=== PATIENT | female | born 1980 | race Two or more races ===

== ENCOUNTER 2024-08-27 07:42 | Inpatient (IN) | payer MEDICAID ==
[~2024-08-27] VITALS: Ht 152.4 cm; Wt 59.7 kg
[~2024-08-27 07:42] MED LIST: ATOR10TA52 PO; CHOL20003 PO; FENO145T27 PO; LEVO75TA6 PO; LISI10TA34 PO; METF-371 PO
--- NOTE | 2024-08-27 07:58 | ED.PDOC ---
GI ASSESSMENT HPI Comments 44-year-old female with PMHx DM presents with a chief complaint of nausea and vomiting x 2 days with associated abdominal discomfort. Patient states that her discomfort is diffuse in location, describes as a general aching sensation. Patient mentions that she has not checked her sugar lately, but usually is in the 160's according to patient. Patient is tachycardic, but has moist mucus membranes. Patient endorses nausea and vomiting, but no bleeding or blood present in the emesis. No other symptoms or modifying factors present at this time. Time Seen by MD: 07:55 Reviewed Notes: Medications, Allergies Allergies: Coded Allergies: NO KNOWN ALLERGIES (Unverified , 08/27/24) Information Source: Patient Mode of Arrival: Ambulatory Timing: Days Duration: Since onset Prehospital treatment: None Quality: Aching Vomitus: Food Particles Stool: Normal Severity: Moderate Recent: None Recent Hx of: Diabetes Pain Location: Diffuse Past Medical History PAST MEDICAL HISTORY: DM Surgical History: Denies all surgeries AUTOMATIC TYPEWRITER INSPECTOR History: Denies all AUTOMATIC TYPEWRITER INSPECTOR Hx Family History Family History: Reviewed,noncontributory to illness Social History Smoker: Non-Smoker Alcohol: Denies ETOH Use Drugs: Denies Drug Use Lives In: Home Constitutional: denies: chills, diaphoresis, fatigue, fever, malaise, sweats, weakness, others EENTM: denies: blurred vision, double vision, ear bleeding, ear discharge, ear drainage, ear pain, ear ringing, eye pain, eye redness, hearing loss, mouth pain, mouth swelling, nasal discharge, nose bleeding, nose congestion, nose pain, photophobia, tearing, throat pain, throat swelling, voice changes, others Respiratory: denies: cough, hemoptysis, orthopnea, SOB at rest, shortness of breath, SOB with excertion, stridor, wheezing, others Cardiovascular: denies: chest pain, dizzy spells, diaphoresis, Dyspnea on exertion, edema, irregular heart beat, left arm pain, lightheadedness, palpitations, PND, syncope, others Gastrointestinal: reports: abdominal pain, nausea, vomiting; denies: abdomen distended, blood streaked bowels, constipated, diarrhea, dysphagia, difficulty swallowing, hematemesis, melena, poor appetite, poor fluid intake, rectal bl eeding, rectal pain, others Genitourinary: denies: abnormal vagina bleeding, burning, dyspareunia, dysuria, flank pain, frequency, hematuria, incontinence, pain, , vagina discharge, urgency, others Neurological: denies: dizziness, fainting, headache, left sided numbness, left sided weakness, numbness, paresthesia, pre-existing deficit, right sided numbness, right sided weakness, seizure, speech problems, tingling, tremors, weakness, others Musculoskeletal: denies: back pain, gout, joint pain, joint swelling, muscle pain, muscle stiffness, neck pain, others Integumetry: denies: bruises, change in color, change in hair/nails, dryness, laceration, lesions, lumps, rash, wounds, others Allergic/Immunocompromised: denies: Difficulty Healing, Frequent Infections, Hives, Itching, others Hematologic/Lymphatic: denies: anemia, blood clots, easy bleeding, easy bruising, swollen glands, others Endocrine: denies: excessive hunger, excessive sweating, excessive thirst, excessive urination, flushing, intolerance to cold, intolerance to heat, unexplained weight gain, unexplained weight loss, others Psychiatric: denies: anxiety, bipolar disorder, depression, hopeless, panic disorder, schizophrenia, sleepless, suicidal, others All Other Systems: Reviewed and Negative Physical Exam General Appearance: No Apparent Distress, Normal HEENT: Normal ENT Inspection, Pharynx Normal, TMs Normal Neck: Full Range of Motion, Non-Tender, Normal, Normal Inspection Respiratory: Chest Non-Tender, Lungs Clear, No Accessory Muscle Use, No Respiratory Distress, Normal Breath Sounds Cardiovascular: No Edema, No JVD, No Murmur, No Gallop, Normal Peripheral Pulses, Tachycardia Breast Exam: Deferred Gastrointestinal: No Organomegaly, Non Tender, No Pulsatile Mass, Normal Bowel Sounds, Soft Genitalia: Deferred Pelvic: Deferred Rectal: Deferred Extremities: No calf tenderness, Normal capillary refill, Normal inspection, Normal range of motion, Non-tender, No pedal edema Musculoskeletal : Apperance: Normal Neurologic: Alert, seo strategist II-XII nml as Tested, No Motor Deficits, Normal Affect, Normal Mood, No Sensory Deficits Cerebellar Function: Normal Reflexes: Normal Skin: Dry, Normal Color, Warm Lymphatic: No Adenopathy Was a procedure done? Was a procedure done?: No GI differential Dx Differential Diagnosis: Appendicitis, Complete , Incomplete , Inevitable , Missed , Threatened , Abruptio placentae, Angina/SC, Bowel Obstruction, Cholangitis, Cholecystitis, Constipation, Diverticular disease, Ectopic , Esophagitis, Gastritis/PUD, Gastroenteritis, Hernia, Hepatitis, Inflammatory BD, Ovarian cyst/torsion, Pancreatitis, PID, UTI, Urolithiasis, Dehydration, Diabetes/ DKA, Electrolyte Imbalance, Food Poisoning, , Bacterial, Viral, Hypovolemia, Impaction, Renal Failure, Ischemic Bowel, Stress Ulcer, Kidney Stone, Other (sepsis) X-Ray, Labs, Meds, VS Vital Signs Date Time Temp Pulse Resp B/P (MAP) Pulse Ox O2 Delivery O2 Flow Rate FiO2 08/27/24 10:20 120 30 98 Room Air* 0 08/27/24 10:13 97.6 120 30 134/77 (96) 98 97.6 08/27/24 08:17 116 17 95 Room Air* 0 08/27/24 08:17 98.0 116 17 125/74 (91) 95 98.0 08/27/24 08:00 97.5 138 22 125/83 (97) 98 Lab Test 08/27/24 10:21 08/27/24 09:16 08/27/24 08:05 08/27/24 08:01 Range/Units POC Glucose 318 H 364 H 70-106 mg/dl Blood Gas Specimen Type Arterial Blood Gas Sample Site Left radial Blood Gas Patient Temperature 37.0 Arterial Blood Date Drawn [id number] Arterial Blood pH 7.395 7.350-7.450 Arterial Blood Partial Pressure CO2 < 12.6 *L 32.0-45.0 mmHg Arterial Blood Partial Pressure O2 103.8 83.0-108.0 mmHg Arterial Blood Oxygen Saturation 97.6 94.0-98.0 % Arterial Blood Oxyhemoglobin 96.8 94.0-98.0 % Arterial Blood Carboxyhemoglobin 0.5 0.5-1.5 % Arterial Blood Methemoglobin 0.3 0.0-1.5 % Dirk Test Yes Blood Gas Total Hemoglobin 14.00 12.0-16.0 g/dL Blood Gas Modality Room air FiO2 % 21.0 Blood Gas Critical Value Read Back Yes Blood Gas Notified Whom Blood Gas Notified Time [id number] Blood Gas Notified By Music Artist [email or web address] White Blood Count 11.8 H 4.4-10.8 10^3/uL Red Blood Count 5.06 4.0-5.20 10^6/uL Hemoglobin 14.0 12.2-16.2 g/dL Hematocrit 42.3 36.0-46.0 % Mean Corpuscular Volume 83.6 80.0-100.0 fL Mean Corpuscular Hemoglobin 27.6 L 28.0-32.0 pg Mean Corpuscular Hemoglobin Concent 33.0 32.0-36.0 g/dL Red Cell Distribution Width 13.4 11.8-14.3 % Platelet Count 424 140-450 10^3/uL Mean Platelet Volume 9.1 6.9-10.8 fL Neutrophils (%) (Auto) 78.0 37.0-80.0 % Lymphocytes (%) (Auto) 15.4 10.0-50.0 % Monocytes (%) (Auto) 6.5 0.0-12.0 % Eosinophils (%) (Auto) 0.0 0.0-7.0 % Basophils (%) (Auto) 0.1 0.0-2.0 % Neutrophils # (Auto) 9.2 H 1.6-8.6 10 ^3/uL Lymphocytes # (Auto) 1.8 0.4-5.4 10 ^3/uL Monocytes # (Auto) 0.8 0-1.3 10 ^3/uL Eosinophils # (Auto) 0 0-0.8 10 ^3/uL Basophils # (Auto) 0 0-0.2 10 ^3/uL Nucleated Red Blood Cells 0.1 % Sodium Level 127 L 136-145 mmol/L Potassium Level 3.1 L 3.5-5.1 mmol/L Chloride Level 91 L 98-107 mmol/L Carbon Dioxide Level < 10 *L 20-31 mmol/L Anion Gap 26.04172 H 5-15 Blood Urea Nitrogen 21 9-23 mg/dL Creatinine 1.08 H 0.550-1.02 mg/dL Glomerular Filtration Rate Calc 65 >90 mL/min BUN/Creatinine Ratio 19.4 10.0-20.0 Serum Glucose 363 H 74-106 mg/dL Calcium Level 11.5 H 8.7-10.4 mg/dL Lipase 78 H 12-53 U/L Beta HCG, Quantitative 0.1 L 1.5-4.2 mIU/mL Test 08/27/24 08:00 08/27/24 07:52 Range/Units POC Glucose 377 H 70-106 mg/dl Urine Color Light-yellow Yellow Urine Clarity Turbid H Clear Urine pH 5.0 5.0-9.0 Urine Specific [place] 1.026 1.001-1.035 Urine Protein 1+ H Negative Urine Ketones 4+ H Negative Urine Blood 2+ H Negative /uL Urine Nitrite Negative Negative Urine Bilirubin Negative Negative Urine Urobilinogen 2 H Negative mg/dL Urine Leukocyte Esterase 3+ Negative /uL Urine RBC 13 0 - 4 /hpf Urine WBC 57 0 - 5 /hpf Urine Squamous Epithelial Cells Few <5 /hpf Urine Bacteria None seen None Seen /hpf Urine Hyaline Casts Few 0 - 2 /lpf Urine Glucose 4+ H Normal mg/dL Current Medications Medications (Trade) Dose Ordered Sig/Edie Route Start Time Stop Time Status Last Admin Sodium Chloride 1,000 ml @ 1,000 mls/hr Q1H ONCE IV 08/27/24 08:00 08/27/24 08:59 DC 08/27/24 08:11 Ondansetron HCl (Zofran) 4 mg ONCE ONCE IV 08/27/24 08:00 08/27/24 08:01 DC 08/27/24 08:11 Insulin Human Regular (InsuLIN R) 6 units ONCE ONCE IV 08/27/24 08:45 08/27/24 08:46 DC 08/27/24 10:25 Potassium Chloride 100 ml @ 50 mls/hr Q2H IV 08/27/24 09:15 08/27/24 15:14 08/27/24 10:18 Time of 1ST Reevaluation: 08:26 Reevaluation 1ST: Unchanged Patient Education/Counseling: Diagnosis, Treatment, Prognosis Family Education/Counseling: Diagnosis, Treatment, Prognosis Comments I reviewed the following notes from patient's past medical encounters: NONE The following tests were ordered, and results were reviewed by me: CBC, BMP, Lipase, Beta HCG, UA Additional Information pt has evidence of an UTI. this likely triggered the DKA. she does not have shock. she has a mixed acid base disorder. pt is on in insulin drip, receiving iv boluses and improving. she will need to be admitted for further treatments Sepsis Sepsis Reasesment Focused Exam Sepsis focused exam: focus exam completed, time: (1100) Departure 1 Departure Time of Disposition: 11:01 Impression: Primary Impression: DKA (diabetic ketoacidosis) Qualified Codes: E10.10 - Type 1 diabetes mellitus with ketoacidosis without coma Additional Impressions: Sepsis Qualified Codes: A41.9 - Sepsis, unspecified organism Mixed acid base balance disorder UTI (urinary tract infection) Qualified Codes: N30.00 - Acute cystitis without hematuria Disposition: 09 ADMITTED INPATIENT Admit to: ICU Condition: Serious Critical Care Note Critical Care Time?: Yes (90 min-critical care time only) Critical care comment: Due to concerns for patients condition deteriorating, the care required my highest level of attention and readiness to intervene. I assessed the patient, reviewed the medical records, ordered the appropriate tests and treatments, then reassessed for results and responsiveness. I communicated with medical personnel and consultants and formulated a plan of care. Total critical care time excludes any procedures Stability Stability form required: No I personally scribed for AMBER CACERES MD ([email or web address]) on 08/27/24 at 07:58. Electronically submitted by Javier Wild ([email or web address]). I personally scribed for AMBER CACERES MD ([email or web address]) on 08/27/24 at 08:00. Electronically submitted by Javier Wild ([email or web address]). AMBER CACERES MD Aug 27, 2024 07:58
[2024-08-27] MEDS: SODIUM CHLORIDE 0.9% 1,000 ML IV ONE (08:11)
[2024-08-27] MEDS: ONDANSETRON HCL 4 MG/2 ML VIAL IV ONE (08:11)
[2024-08-27] MEDS ORDERED: InsuLIN REG 1unit/0.01ml Soln (100units/ml) IV ONE (08:15)
[2024-08-27 08:17] VITALS: PULSE 116; RESP 17; O2SAT 95
[2024-08-27 08:25] LABS: Basophils # (auto) 0 10 ^3/uL (0-0.2); Basophils % (auto) 0.1 % (0.0-2.0); Eosinophils # (auto) 0 10 ^3/uL (0-0.8); Hematocrit 42.3 % (36.0-46.0); Lymphocytes # (auto) 1.8 10 ^3/uL (0.4-5.4); Lymphocytes % (auto) 15.4 % (10.0-50.0); Mean Corpuscular Hemoglobin 27.6 pg (28.0-32.0); Mean Corpuscular Volume 83.6 fL (80.0-100.0); Monocytes # (auto) 0.8 10 ^3/uL (0-1.3); Monocytes % (auto) 6.5 % (0.0-12.0); Neutrophils # (auto) 9.2 10 ^3/uL (1.6-8.6); Nucleated Red Blood Cells % 0.1 %; Platelet Count (auto) 424 10^3/uL (140-450); Red Blood Cells 5.06 10^6/uL (4.0-5.20); Red Cell Distribution Width 13.4 % (11.8-14.3); White Blood Cell 11.8 10^3/uL (4.4-10.8)
[2024-08-27 08:31] LABS: Anion Gap 26.00001 (5-15)
[2024-08-27 08:37] LABS: BUN/Creatinine Ratio 19.4 (10.0-20.0); Blood Urea Nitrogen 21 mg/dL (9-23)
[2024-08-27 08:53] LABS: Calcium 11.5 mg/dL (8.7-10.4); Chloride 91 mmol/L (98-107); Glucose 363 mg/dL (74-106); Potassium 3.1 mmol/L (3.5-5.1); Sodium 127 mmol/L (136-145)
[2024-08-27 08:55] LABS: Carbon Dioxide < 10 mmol/L (20-31)
[2024-08-27 09:18] LABS: Urine Bacteria None Seen /hpf (None Seen)
[2024-08-27 09:35] LABS: Urine Blood 2+ /uL (Negative); Urine Clarity Turbid (Clear); Urine Color Light-Yellow (Yellow); Urine Hyaline Cast FEW /lpf (0 - 2); Urine Protein, UAD 1+ (Negative); Urine Specific Gravity 1.026 (1.001-1.035); Urine Squamous Epithelial Cell FEW /hpf (<5); Urine Urobilinogen 2 mg/dL (Negative); Urine WBC 57 /hpf (0 - 5)
[2024-08-27] MEDS: POTASSIUM CHL 20MEQ/100ML 100 ML IV SCH (10:18)
[2024-08-27 10:20] VITALS: PULSE 120; RESP 30; O2SAT 98
[2024-08-27] MEDS: InsuLIN REG 1unit/0.01ml Soln (100units/ml) IV ONE (10:25)
[2024-08-27 10:38] LABS: Lipase 78 U/L (12-53)
[2024-08-27] MEDS ORDERED: DEXTROSE (50%) 50ML SYRG IV PRN ×2 (11:00→23:15)
[2024-08-27] MEDS: PIPERACILLIN-TAZOB 3.375GM 100 ML IV ONE (11:21)
[2024-08-27] MEDS: SODIUM CHLORIDE 0.9% 1,650 ML IV ONE (11:21)
[2024-08-27 11:27] LABS: Magnesium 2.2 mg/dL (1.6-2.6)
[2024-08-27 11:28] LABS: Phosphorus 2.9 mg/dL (2.4-5.1)
[2024-08-27] MEDS: ACCU-CHEK COMFORT CURVE STRIP VI SCH ×2 (11:32→23:48)
[2024-08-27] MEDS: INSULIN DRIP 100 UNIT/100ML 100 ML IV SCH (11:32)
[2024-08-27] MEDS: INSULIN LANTUS (GLARGINE) 1 /0.01ml (100units/ml) SC ONE (11:33)
--- NOTE | 2024-08-27 11:40 | DVH ---
XY CHEST PORTABLE, HISTORY: sepsis COMPARISON: None None TECHNICAL DATA: 1 view of the chest was obtained. FINDINGS: Lines and tubes: None Cardiomediastinal silhouette: normal Pulmonary vasculature: normal Lung expansion: normal Lung airspace: normal Lung interstitium: normal Pleura: normal Pneumothorax: no Bones: Unremarkable Other: no IMPRESSION: No acute intrathoracic abnormality.
[2024-08-27] MEDS: METOCLOPRAMIDE HCL 5MG/ml INJ 2ml VIAL IV ONE ×2 (13:15→17:51)
[2024-08-27] MEDS: D5W/SOD CHLO 0.9% 1,000 ML IV SCH (13:36)
[2024-08-27] MEDS ORDERED: PIPERACILLIN-TAZO 4.5GM 100 ML IV SCH (14:00)
--- NOTE | 2024-08-27 14:36 | DVHHP2 ---
History of Present Illness Reason for Visit: Nausea and vomiting History of Present Illness This 44-year-old female with past medical history of diabetes type 2, presents in the ED with a chief complaint of nausea and vomiting. The patient reports nausea and vomiting x2 days, and associated with abdominal discomfort. In the e mergency department the patient is found to be in DKA for which she was started on DKA insulin protocol. Patient also presented in the emergency department with a UTI and leukocytosis. Past Medical History Diabetes type 2 Hypertension Past Surgical History Denies Family History Reviewed, non-contributory to the management of this case. Past Social History The patient lives at home, denies smoking, alcohol or illicit drugs abuse. Review of Systems Constitutional: Yes: Malaise; No: Fever, Chills, Sweats, Weakness, Other Eyes: No: Pain, Vision change, Conjunctivae inflammation, Eyelid inflammation, Other, Redness ENT: No: Ear pain, Ear discharge, Nose pain, Nose discharge, Nose congestion, Mouth pain, Mouth swelling, Throat pain, Throat swelling, Other Respiratory: No: Cough, Dry, Shortness of breath, SOB with excertion, Wheezing, Hemoptysis, Pleuritic Pain, Sputum, Wheezing, Other Cardiovascular: No: Chest Pain, Palpitations, Orthopnea, Paroxysmal Noc. Dyspnea, Edema, Lt Headedness, Other Gastrointestinal: Nausea, Vomiting, Abdominal Pain; No: Diarrhea, Constipation, Melena, Hematochezia, Other Genitourinary: No Dysuria, No Frequency, No Incontinence, No Hematuria, No Retention, No Other Musculoskeletal: No: other, neck pain, shoulder pain, arm pain, back pain, hand pain, leg pain, foot pain Skin: No: Rash, Lesions, Jaundice, Bruising, Other Neurological: No: Weakness, Numbness, Incoordination, Change in speech, Confusion, Seizures, Other Allergies: Coded Allergies: NO KNOWN ALLERGIES (Unverified , 08/27/24) Medications Current Medications Medications Dose Ordered Sig/Edie Route Start Time Stop Time Status Last Admin Dose Admin Potassium Chloride 100 ml @ 50 mls/hr Q2H IV 08/27/24 09:15 08/27/24 15:14 08/27/24 13:59 50 MLS/HR Insulin Human (Reg)/Sodium Chloride 100 ml @ 0.5 mls/hr Q24H IV 08/27/24 11:00 08/27/24 11:32 3 MLS/HR Dextrose 50 ml UD PRN IV 08/27/24 11:00 Diagnostic Test (Pha) 1 strip Q90MIN 08/27/24 12:00 08/27/24 13:21 1 STRIP Insulin Glargine 15 units DAILY SC 08/28/24 10:00 Piperacillin Sod/ Tazobactam Sod 100 ml @ 25 mls/hr Q8H IV 08/27/24 20:00 Dextrose/Sodium Chloride 1,000 ml @ 100 mls/hr Q10H IV 08/27/24 13:30 08/27/24 13:36 100 MLS/HR Exam Vital Signs Vital Signs Date Time Temp Pulse Resp B/P (MAP) Pulse Ox O2 Delivery O2 Flow Rate FiO2 08/27/24 12:11 105 08/27/24 12:00 24 132/79 (96) 99 08/27/24 10:20 Room Air* 0 21 08/27/24 10:13 97.6 97.6 General Appearance: Alert, Oriented X3, mild distress HEENT: Atraumatic, PERRLA, EOMI, Mucous membr. moist/pink Respiratory: Clear to auscultation, Normal air movement Cardiovascular: Regular rate, Normal S1 Abdominal: Normal bowel sounds, Soft, No tenderness Extremities: No clubbing, No cyanosis, No edema, Normal pulses Skin: No rashes, No breakdown, No significant lesion Neuro: Normal gait, Normal speech, Strength at 5/5 X4 ext, Normal tone Psych/Mental Status: Mental status NL Labs/Xrays Labs Test 08/27/24 13:21 08/27/24 13:16 08/27/24 11:17 08/27/24 09:16 Range/Units POC Glucose 202 H 70-106 mg/dl Troponin I High Sensitivity 3 L </=34 ng/L Lactic Acid Level 1.6 0.4-2.0 mmol/L Blood Gas Specimen Type Arterial Blood Gas Sample Site Left radial Blood Gas Patient Temperature 37.0 Arterial Blood Date Drawn [id number] Arterial Blood pH 7.395 7.350-7.450 Arterial Blood Partial Pressure CO2 < 12.6 *L 32.0-45.0 mmHg Arterial Blood Partial Pressure O2 103.8 83.0-108.0 mmHg Arterial Blood Oxygen Saturation 97.6 94.0-98.0 % Arterial Blood Oxyhemoglobin 96.8 94.0-98.0 % Arterial Blood Carboxyhemoglobin 0.5 0.5-1.5 % Arterial Blood Methemoglobin 0.3 0.0-1.5 % Dirk Test Yes Blood Gas Total Hemoglobin 14.00 12.0-16.0 g/dL Blood Gas Modality Room air FiO2 % 21.0 Blood Gas Critical Value Read Back Yes Blood Gas Notified Whom Blood Gas Notified Time [id number] Blood Gas Notified By [place] Operator iván Test 08/27/24 08:05 08/27/24 07:52 Range/Units White Blood Count 11.8 H 4.4-10.8 10^3/uL Red Blood Count 5.06 4.0-5.20 10^6/uL Hemoglobin 14.0 12.2-16.2 g/dL Hematocrit 42.3 36.0-46.0 % Mean Corpuscular Volume 83.6 80.0-100.0 fL Mean Corpuscular Hemoglobin 27.6 L 28.0-32.0 pg Mean Corpuscular Hemoglobin Concent 33.0 32.0-36.0 g/dL Red Cell Distribution Width 13.4 11.8-14.3 % Platelet Count 424 140-450 10^3/uL Mean Platelet Volume 9.1 6.9-10.8 fL Neutrophils (%) (Auto) 78.0 37.0-80.0 % Lymphocytes (%) (Auto) 15.4 10.0-50.0 % Monocytes (%) (Auto) 6.5 0.0-12.0 % Eosinophils (%) (Auto) 0.0 0.0-7.0 % Basophils (%) (Auto) 0.1 0.0-2.0 % Neutrophils # (Auto) 9.2 H 1.6-8.6 10 ^3/uL Lymphocytes # (Auto) 1.8 0.4-5.4 10 ^3/uL Monocytes # (Auto) 0.8 0-1.3 10 ^3/uL Eosinophils # (Auto) 0 0-0.8 10 ^3/uL Basophils # (Auto) 0 0-0.2 10 ^3/uL Nucleated Red Blood Cells 0.1 % Sodium Level 127 L 136-145 mmol/L Potassium Level 3.1 L 3.5-5.1 mmol/L Chloride Level 91 L 98-107 mmol/L Carbon Dioxide Level < 10 *L 20-31 mmol/L Anion Gap 26.47734 H 5-15 Blood Urea Nitrogen 21 9-23 mg/dL Creatinine 1.08 H 0.550-1.02 mg/dL Glomerular Filtration Rate Calc 65 >90 mL/min BUN/Creatinine Ratio 19.4 10.0-20.0 Serum Glucose 363 H 74-106 mg/dL Serum Osmolality 301 H 278-298 mOsm/kg Calcium Level 11.5 H 8.7-10.4 mg/dL Phosphorus Level 2.9 2.4-5.1 mg/dL Magnesium Level 2.2 1.6-2.6 mg/dL Lipase 78 H 12-53 U/L Beta-Hydroxybutyric Acid > 4.500 H < 0.4 mmol/L Beta HCG, Quantitative 0.1 L 1.5-4.2 mIU/mL Urine Color Light-yellow Yellow Urine Clarity Turbid H Clear Urine pH 5.0 5.0-9.0 Urine Specific [place] 1.026 1.001-1.035 Urine Protein 1+ H Negative Urine Ketones 4+ H Negative Urine Blood 2+ H Negative /uL Urine Nitrite Negative Negative Urine Bilirubin Negative Negative Urine Urobilinogen 2 H Negative mg/dL Urine Leukocyte Esterase 3+ Negative /uL Urine RBC 13 0 - 4 /hpf Urine WBC 57 0 - 5 /hpf Urine Squamous Epithelial Cells Few <5 /hpf Urine Bacteria None seen None Seen /hpf Urine Hyaline Casts Few 0 - 2 /lpf Urine Glucose 4+ H Normal mg/dL PROCEDURE(s): CXRP - CHEST PORTABLE REASON: sepsis ORDER NUMBER(s): [id number], ACCESSION NUMBER(s): [id number] XY CHEST PORTABLE, HISTORY: sepsis COMPARISON: None None TECHNICAL DATA: 1 view of the chest was obtained. FINDINGS: Lines and tubes: None Cardiomediastinal silhouette: normal Pulmonary vasculature: normal Lung expansion: normal Lung airspace: normal Lung interstitium: normal Pleura: normal Pneumothorax: no Bones: Unremarkable Other: no IMPRESSION: No acute intrathoracic abnormality. Assessment/Plan Assessment/Plan # DKA # diabetes type 2 with hyperglycemia # nausea and vomiting Admit to ICU DKA protocol Lantus BMP and beta hydroxy q.6 hours Check A1c, lipid panel Continue with statins Antiemetics # rule out sepsis # acute UTI Ceftriaxone Blood and urine culture # hypertension Continue with lisinopril # obesity Lifestyle modification counseled with diet, regular exercise, and weight loss Medical plan discussed with patient and RN Plan discussed with: Patient My Orders Orders - NINFA HIDALGOP Procedure Category Date Status Time Admit ADMIT 08/27/24 Verified 14:27 Code Status CODE 08/27/24 Verified 14:27 Ondansetron Hcl PHA 08/27/24 Verified (Zofran) 14:30 Complete Blood Count LAB 08/28/24 Verified 04:00 Comprehensive LAB 08/28/24 Verified Metabolic Panel 04:00 Cardiac DIET 08/27/24 Verified Diet-2gna,Lofat,Lochol Dinner Condition: Serious INNA 08/27/24 Verified 14:27 Urine Bacterial BUSTER 08/27/24 Verified Culture 14:27 Ceftriaxone Ivpb PHA 08/28/24 Verified Rocephin 09:00 Ceftriaxone Ivpb PHA 08/27/24 Verified Rocephin 14:30 Beta-Hydroxybutyrate LAB 08/27/24 Verified 18:00 Beta-Hydroxybutyrate LAB 08/28/24 Verified 00:00 Beta-Hydroxybutyrate LAB 08/28/24 Verified 06:00 Beta-Hydroxybutyrate LAB 08/28/24 Verified 12:00 Basic Metabolic Panel LAB 08/27/24 Verified 18:00 Basic Metabolic Panel LAB 08/28/24 Verified 00:00 Basic Metabolic Panel LAB 08/28/24 Verified 06:00 Basic Metabolic Panel LAB 08/28/24 Verified 12:00 Hemoglobin A1c LAB 08/27/24 Verified 14:27 Lipid Panel LAB 08/27/24 Verified 14:27 Date of Service: Aug 27, 2024 Billing Provider: NINFA HIDALGO Common Visit Codes: [id number] INP/OBS CARE (HIGH) NINFA HIDALGOP Aug 27, 2024 14:36
[2024-08-27] MEDS ORDERED: hydrALAZINE HCL 20 MG/ML VL IV PRN (14:45)
[2024-08-27] MEDS: cefTRIAXone 1GM/50ML D5W 50 ML IV ONE (15:25)
[2024-08-27] MEDS: PANTOPRAZOLE 40 MG/10 ML VIAL INJ IV SCH (15:25)
[2024-08-27 15:45] LABS: Cholesterol 443 mg/dL (< 200)
[2024-08-27 15:46] LABS: HDL Cholesterol 31 mg/dL (40-59); Triglycerides 1607 mg/dL (< 150)
[2024-08-27] MEDS: ONDANSETRON HCL 4 MG/2 ML VIAL IV PRN (16:55)
[2024-08-27 18:30] LABS: Chloride 105 mmol/L (98-107)
[2024-08-27 18:31] LABS: Anion Gap 13 (5-15); Calcium 9.4 mg/dL (8.7-10.4)
[2024-08-27 18:36] LABS: BUN/Creatinine Ratio 22.4 (10.0-20.0); Blood Urea Nitrogen 15 mg/dL (9-23)
[2024-08-27 18:40] LABS: Carbon Dioxide 16 mmol/L (20-31); Glucose 232 mg/dL (74-106); Potassium 3.5 mmol/L (3.5-5.1); Sodium 134 mmol/L (136-145)
[2024-08-27 20:11] VITALS: PULSE 98; RESP 22; O2SAT 99
[2024-08-27] MEDS: PIPERACILLIN-TAZOB 3.375GM 100 ML IV SCH (20:24)
[2024-08-27] MEDS: MAALOX PLUS or MAALOX 30 ML PO ONE (20:57)
[2024-08-27] MEDS: ATORVASTATIN 20 MG TAB PO SCH (22:00)
[2024-08-27] MEDS: MELATONIN 5 MG TAB PO ONE (23:36)
[2024-08-27] MEDS: InsuLIN REG 1unit/0.01ml Soln (100units/ml) SC SCH (23:58)
[2024-08-28] MEDS: MORPHINE SULFATE INJ 2 MG/ml SYRG IV ONE (01:20)
[2024-08-28 04:04] LABS: Basophils # (auto) 0 10 ^3/uL (0-0.2); Basophils % (auto) 0.2 % (0.0-2.0); Eosinophils # (auto) 0 10 ^3/uL (0-0.8); Eosinophils % (auto) 0.1 % (0.0-7.0); Hematocrit 34.9 % (36.0-46.0); Lymphocytes # (auto) 1.4 10 ^3/uL (0.4-5.4); Lymphocytes % (auto) 13.4 % (10.0-50.0); Mean Corpuscular Hemoglobin 27.9 pg (28.0-32.0); Mean Corpuscular Hgb Conc. 34.3 g/dL (32.0-36.0); Mean Corpuscular Volume 81.3 fL (80.0-100.0); Neutrophils # (auto) 8.3 10 ^3/uL (1.6-8.6); Neutrophils % (auto) 77.3 % (37.0-80.0); Platelet Count (auto) 263 10^3/uL (140-450); Red Blood Cells 4.29 10^6/uL (4.0-5.20); Red Cell Distribution Width 12.9 % (11.8-14.3); White Blood Cell 10.7 10^3/uL (4.4-10.8)
[2024-08-28] MEDS: HYDROcodone-ACET 5/325MG TAB PO PRN (04:33)
[2024-08-28 04:48] LABS: Alanine Aminotransferase 11 U/L (7-40); Albumin 3.6 g/dL (3.2-4.8); Alkaline Phosphatase 73 U/L (46-116); Anion Gap 11 (5-15); Aspartate Aminotransferase 15 U/L (13-40); BUN/Creatinine Ratio 16.4 (10.0-20.0); Bilirubin, Total 0.6 mg/dL (0.2-1.0); Blood Urea Nitrogen 9 mg/dL (9-23); Calcium 9.8 mg/dL (8.7-10.4); Carbon Dioxide 20 mmol/L (20-31)
[2024-08-28 04:56] LABS: Chloride 104 mmol/L (98-107); Glucose 176 mg/dL (74-106); Potassium 2.7 mmol/L (3.5-5.1); Sodium 135 mmol/L (136-145); Total Protein 5.6 g/dL (5.7-8.2)
[2024-08-28] MEDS: POTASSIUM CHL 20 Meq TABLET PO ONE (06:54)
[2024-08-28] MEDS: POTASSIUM CHLORIDE 40 MEQ, LIDOCAINE 1% (LOCAL ANESTH.) 4 ML in SODIUM CHL 0.9% 250 ML IV ONE (07:45)
[2024-08-28 08:49] VITALS: BP 130/79; PULSE 81; RESP 16; TEMP 97.6; O2SAT 95
[2024-08-28] MEDS: SODIUM CHLORIDE 0.9% 1,000 ML IV ONE (10:11)
[2024-08-28 10:19] VITALS: BP 145/68; PULSE 78; RESP 18; TEMP 98.1; O2SAT 98
[2024-08-28] MEDS ORDERED: CETI-120 PO (10:34)
[2024-08-28 11:23] VITALS: BP 149/81; PULSE 92; RESP 22; TEMP 98.2; O2SAT 96
[2024-08-28] MEDS: SUCRALFATE 1 GM/10 ML ORAL SUSP GT SCH (11:30)
--- NOTE | 2024-08-28 12:00 | DVH ---
Exam: CT CT AB PEL WO CON-NO ORAL OR IV History: intractable N,V, abd pain acute pancreatitis Comparison Study: None Technique: Multidetector spiral CT of the abdomen and pelvis was performed from lung bases to pubic symphysis. Imaging was performed without IV contrast. Axial, coronal and sagittal multiplanar reform ats were obtained from the axial data set by the technologist. Radiation dose : Abdomen/Pelvis: CTDIvol 7 mGy, DLP 421.87 mGy*cm. Findings: Evaluation of solid organs is limited due to lack of intravenous contrast use. Lung Bases: Trace bilateral pleural effusions with associated basilar atelectasis and scarring. Liver: The liver is normal in size. No focal lesions. Gallbladder and biliary Tree: Unremarkable Spleen: Unremarkable Pancreas: Pancreas appears enlarged with peripancreatic stranding consistent with acute pancreatitis. Adrenal Glands: Unremarkable Kidneys: Kidneys are grossly normal without calculi or hydronephrosis. Bladder: Grossly unremarkable for degree of distention. Bowel: The stomach is grossly normal in appearance. Small bowel and colon are normal in caliber and d istribution. The appendix is not visualized; however, no secondary findings of acute appendicitis id entified. Ascites: Small amount of ascites in the upper abdomen. Lymphadenopathy: No mesenteric, retroperitoneal or periportal lymphadenopathy. Abdominal wall and Mesentery: Stranding in the mesentery. Vasculature: The visualized abdominal aorta is normal in size and caliber. Evaluation of abdominal a nd pelvic vessels is limited due to lack of intravenous contrast. Pelvic Organs: Unremarkable Musculoskeletal: No aggressive focal bony lesions, acute fractures or dislocation. IMPRESSION: 1. Enlarged pancreas with peripancreatic stranding as well as stranding and free fluid in the mesente ry and upper abdomen. Findings are consistent with given history of acute pancreatitis. No loculated fluid collection or abscess identified. Consider further evaluation with CT or MRI of the abdomen wit h contrast. Radiation optimization: All CT scans at this facility use at least one of these dose optimization judy hniques: Automated exposure control mA and/or kV adjustment per patient size (includes targeted exams where dose is matched to clinical indication) or iterative reconstruction. HS:Y
[2024-08-28] MEDS ORDERED: INSULIN DRIP 100 UNIT/100ML 100 ML IV SCH (12:15)
[2024-08-28] MEDS ORDERED: DEXTROSE (50%) 50ML SYRG IV PRN ×2 (12:15→12:45)
[2024-08-28] MEDS ORDERED: D5W 5% 1,000 ML IV SCH (12:15)
[2024-08-28] MEDS: LISINOPRIL 5 MG TAB PO SCH (12:23)
[2024-08-28] MEDS: INSULIN LANTUS (GLARGINE) 1 /0.01ml (100units/ml) SC SCH (12:23)
[2024-08-28 13:19] LABS: Cholesterol 312 mg/dL (< 200); HDL Cholesterol 35 mg/dL (40-59); Triglycerides 722 mg/dL (< 150)
[2024-08-28] MEDS ORDERED: ACCU-CHEK COMFORT CURVE STRIP VI SCH (13:30)
[2024-08-28 13:57] VITALS: BP 135/77; PULSE 83; RESP 19; TEMP 98.2; O2SAT 97
[2024-08-28] MEDS: cefTRIAXone 1GM/50ML D5W 50 ML IV SCH (14:27)
[2024-08-28] MEDS: GEMFIBROZIL 600 MG TAB PO ONE (15:34)
[2024-08-28 15:56] LABS: Chloride 102 mmol/L (98-107)
[2024-08-28 15:57] LABS: Anion Gap 10 (5-15); Carbon Dioxide 23 mmol/L (20-31)
[2024-08-28 15:58] LABS: Calcium 10.2 mg/dL (8.7-10.4); Potassium 2.9 mmol/L (3.5-5.1); Sodium 135 mmol/L (136-145)
[2024-08-28] MEDS: ACCU-CHEK COMFORT CURVE STRIP VI SCH (16:00)
[2024-08-28 16:03] LABS: BUN/Creatinine Ratio 15.2 (10.0-20.0)
[2024-08-28 16:04] LABS: Blood Urea Nitrogen 7 mg/dL (9-23); Glucose 164 mg/dL (74-106); Magnesium 1.5 mg/dL (1.6-2.6)
[2024-08-28 16:40] VITALS: BP 132/65; PULSE 92; RESP 14; TEMP 97.8; O2SAT 98
[2024-08-28] MEDS: InsuLIN REG 1unit/0.01ml Soln (100units/ml) SC SCH (16:40)
[2024-08-28] MEDS ORDERED: POTASSIUM CHLORIDE 40 MEQ, LIDOCAINE 1% (LOCAL ANESTH.) 4 ML in SODIUM CHL 0.9% 250 ML IV ONE (16:45)
--- NOTE | 2024-08-28 16:59 | DVHPNRES ---
Progress Note Date Seen: Aug 28, 2024 Resident Creating Document: KIMMYMaricruzDUSTIN AlcantaraMIKE RESIDENT Medical Necessity Reason Pt with a Central, PICC or Fol: No Subjective Review of Systems Patient 44-year-old female with a past medical history of type 2 diabetes mellitus, hypertension, GERD came to the ED with a chief complaint of nausea and vomiting with the past 3 days. Patient reports that she was apparently well 3 days ago when she started to have nausea and vomiting and was not able to keep anything down. Also reported pain in the epigastrium and the umbilical quadrants, nonradiating pain which was intermittent on and off and got worsened with the food intake. Patient denied shortness of breath, chest pain, diarrhea. At admission patient had elevated WBC with left shift, BMP showing carbon dioxide less than 10, anion gap 26 and elevated beta hydroxybutyric acid. Patient had elevated triglycerides at 1600, lipase 78. Medical history: Type 2 diabetes mellitus, hypertension, hypothyroidism Surgical history: None reported Social history: Patient was with family and denies smoking, alcohol, drug use Medications: Lisinopril 10 mg, fenofibrate 145 mg, levothyroxine 75 mcg Review of systems At the time of examination patient reported mild abdominal discomfort upper abdomen. Reported relief from nausea and vomiting. Reported heartburn and felt bloated. Denied chest pain, shortness of breath, headache, palpitations. Objective vital signs Vital Sign Date Time Temp Pulse Resp B/P (MAP) Pulse Ox O2 Delivery O2 Flow Rate FiO2 08/28/24 13:57 98.2 83 19 135/77 (96) 97 98.2 08/28/24 10:19 Room Air* 0 21 Total Intake and Output 08/27/24 08/27/24 08/28/24 15:00 23:00 07:00 Intake Total 1950 ml 608 ml 100 ml Output Total 1750 ml 900 ml Balance 1950 ml -1142 ml -800 ml medications Current Medications Medications Dose Ordered Sig/Edie Route Start Time Stop Time Status Last Admin Dose Admin Ondansetron HCl 4 mg Q4HP PRN IV 08/27/24 14:30 08/27/24 16:55 4 MG Ceftriaxone Sodium 50 ml @ 100 mls/hr DAILY@09 IV 08/28/24 09:00 08/28/24 14:27 100 MLS/HR Hydralazine HCl 10 mg Q6HP PRN IV 08/27/24 14:45 Pantoprazole Sodium 40 mg DAILY IV 08/27/24 15:30 08/28/24 12:22 40 MG Acetaminophen/ Hydrocodone Bitart 1 tab Q6HPRN PRN PO 08/28/24 04:30 08/28/24 04:33 1 TAB Gemfibrozil 600 mg Q12HR PO 08/28/24 22:00 Insulin Glargine 15 units DAILY SC 08/29/24 07:00 Diagnostic Test (Pha) 1 strip IQ4HR 08/28/24 16:00 Insulin Human Regular IQ4HR SC 08/28/24 16:00 Dextrose 50 ml UD PRN IV 08/28/24 12:45 Examination Physical Examination General: Patient is alert and oriented to time, place and person and does not appear to be in any acute distress Gen - no pallor, no icterus, no cyanosis, no clubbing, no LAD, no edema . Skin - Patients skin is warm and dry.. HEENT - normocephalic, atraumatic, dry mucous membranes. Neck - full ROM, no LAD Pulmonary - B/L vesicular breath sounds. no crackles , no wheezing cardiovascular - normal S1,S2 heard. no murmurs heard. No JVD GI - soft abdomen with mild tenderness to palpation in the umbilical and epigastric quadrants. no hepatospleenomegaly. Bowel sounds normoactive Neurological - Bilateral upper extremity strength 5/5, bilateral lower extremity strength 5/5, no facial droop, normal speech, no tremor, no sensory deficiets. laboratory and microbiology Laboratory Tests 08/28/24 15:26 08/28/24 03:37 Test 08/28/24 15:26 Range/Units Serum Glucose 164 H 74-106 mg/dL Microbiology Date/Time Source Procedure Growth Status 08/27/24 11:17 Blood Blood Culture - Preliminary NO GROWTH AFTER 24 HOURS OF INCUBATION. Resulted 08/27/24 07:52 Voided Urine Urine Culture - Preliminary Resulted Problem List/Assessment/Plan Problem List/Assessment/Plan Assessment Diabetic ketoacidosis Anion gap metabolic acidosis with respiratory compensation Uncontrolled Type 2 diabetes mellitus with hyperglycemia - patient started on insulin drip - after anion gap closed and serum bicarbonate increased, insulin drip stopped and bridged with insulin Lantus sc - insulin Lantus 15 units SC q.d. and moderate insulin sliding scale - IV fluids - HbA1c 9.1% Acute Abdominal pain Acute intractable nausea and vomiting Acute pancreatitis likely due to hypertriglyceridemia - CT abdomen pelvis without contrast shows Enlarged pancreas with peripancreatic stranding as well as stranding and free fluid in the mesentery and upper abdomen.No loculated fluid collection or abscess identified. - patient NPO - gemfibrozil 600 mg q.12 hours - Protonix 40 mg IV daily - triglyceride level decreasing, monitor triglycerides q.12 hours Hypokalemia - replaced with 40 mEq IV X 2 Goals of care discussed with the patient and her for over 27 minutes. Full code Plan discussed with Plan discussed with: Patient, Spouse My Orders My Orders Orders - JAYDA DAVIS Procedure Category Date Status Time Sodium Chloride 0.9% PHA 08/28/24 In Process 07:45 Npo (Nothing By DIET 08/28/24 Transmitted Mouth) Diet Lunch Ct Ab Pel Wo Con-No CT 08/28/24 Resulted Oral Or Iv 10:20 Gemfibrozil Tablet PHA 08/28/24 In Process (Lopid Tablet) 22:00 Insulin Lantus PHA 08/29/24 In Process (Glargine) (Lantus) 07:00 Transfer Orders XFER 08/28/24 Transmitted 12:33 Glucose Blood PHA 08/28/24 In Process (Accu-Chek Comfort 16:00 Insulin R (Human) PHA 08/28/24 In Process (Insulin R) 16:00 Dextrose 50% Syringe PHA 08/28/24 In Process 12:45 Date of Service: Aug 28, 2024 Billing Provider: MARVA GARCIA MD Common Visit Codes: [id number] INP/OBS CARE(HIGH) JYADA DAVIS RESIDENT Aug 28, 2024 16:59 MARVA GARCIA MD Aug 28, 2024 19:00
--- NOTE | 2024-08-28 17:39 | DVH ---
Ultrasound gallbladder INDICATION: cholelithiasis Technique: 2-D real-time ultrasound was performed with axial and sagittal images submitted for evalu ation. FINDINGS: Liver and spleen are normal in size without focal mass. No gallstones or gallbladder wall thickening. No biliary dilatation. Kidneys are normal in size without mass stone or hydronephrosis. L imited visualization of the pancreas due to overlying bowel gas. No free fluid. No abnormalities of t he aorta or inferior vena cava. IMPRESSION: 1. Normal abdominal ultrasound. No evidence of cholelithiasis or cholecystitis
[2024-08-28] MEDS: MAGNESIUM SULFATE 1GM/100ML 100 ML IV ONE (21:05)
[2024-08-28] MEDS: POTASSIUM CHL 20MEQ/100ML 100 ML IV SCH (22:23)
[2024-08-28 23:52] VITALS: RESP 16
[2024-08-29] MEDS: GEMFIBROZIL 600 MG TAB PO SCH (00:22)
[2024-08-29 05:00] VITALS: BP 146/78; PULSE 108; RESP 18; TEMP 98.3; O2SAT 97
[2024-08-29] MEDS: INSULIN LANTUS (GLARGINE) 1 /0.01ml (100units/ml) SC SCH (06:32)
[2024-08-29 07:39] LABS: Anion Gap 17 (5-15); Chloride 101 mmol/L (98-107)
[2024-08-29 07:41] LABS: Calcium 9.9 mg/dL (8.7-10.4)
[2024-08-29 07:49] LABS: BUN/Creatinine Ratio 13.9 (10.0-20.0); Blood Urea Nitrogen < 5 mg/dL (9-23); Carbon Dioxide 17 mmol/L (20-31); Glucose 134 mg/dL (74-106); Potassium 3.3 mmol/L (3.5-5.1); Sodium 135 mmol/L (136-145)
[2024-08-29 07:51] LABS: Cholesterol 256 mg/dL (< 200); HDL Cholesterol 40 mg/dL (40-59); Triglycerides 474 mg/dL (< 150)
[2024-08-29 08:00] VITALS: PULSE 110; PULSE 122; RESP 16; O2SAT 96
[2024-08-29 09:00] VITALS: BP 138/85; PULSE 115; RESP 19; TEMP 97.5; O2SAT 97
[2024-08-29] MEDS: MORPHINE SULFATE INJ 2 MG/ml SYRG IV PRN (09:54)
[2024-08-29 11:20] LABS: Basophils # (auto) 0 10 ^3/uL (0-0.2); Basophils % (auto) 0.1 % (0.0-2.0); Eosinophils # (auto) 0 10 ^3/uL (0-0.8); Eosinophils % (auto) 0.1 % (0.0-7.0); Hematocrit 39.9 % (36.0-46.0); Hemoglobin 12.8 g/dL (12.2-16.2); Lymphocytes # (auto) 1.9 10 ^3/uL (0.4-5.4); Lymphocytes % (auto) 15.6 % (10.0-50.0); Mean Corpuscular Hemoglobin 27.3 pg (28.0-32.0); Mean Corpuscular Hgb Conc. 32.2 g/dL (32.0-36.0); Mean Corpuscular Volume 84.9 fL (80.0-100.0); Monocytes # (auto) 1.2 10 ^3/uL (0-1.3); Neutrophils # (auto) 8.9 10 ^3/uL (1.6-8.6); Neutrophils % (auto) 74.2 % (37.0-80.0); Nucleated Red Blood Cells % 0.1 %; Platelet Count (auto) 285 10^3/uL (140-450); Red Blood Cells 4.71 10^6/uL (4.0-5.20); Red Cell Distribution Width 13.3 % (11.8-14.3)
[2024-08-29] MEDS: POTASSIUM CHLORIDE 20 MEQ, LIDOCAINE 1% (LOCAL ANESTH.) 2 ML in SODIUM CHL 0.9% 100 ML IV ONE (12:44)
[2024-08-29 13:00] VITALS: BP 144/84; PULSE 112; RESP 18; TEMP 98.2; O2SAT 96
--- NOTE | 2024-08-29 13:43 | ECG ---
[facility] Test Date: 2024-08-27 Test Time: 07:57:39 Pat Name: RUCHI LOUIS Department: ER Room: 0220T A Gender: F [employer] Operator: ERVIN : 1980 Requested By: AMBER CACERES Order Number: [id number] Reading MD: Lul Mejia Measurements Intervals [place] Rate: 123 P: 67 WI: 112 QRS: 116 QRSD: 104 T: 5 QT: 357 QTc: 511 Interpretive Statements Sinus tachycardia Consider right atrial enlargement Right axis deviation Abnormal inferior Q waves Prolonged QT interval Electronically Signed On 08-31-2024 16:28:15 PST by Lul Mejia Please click the below link to view image of tracing.
[2024-08-29 19:35] LABS: Cholesterol 260 mg/dL (< 200); HDL Cholesterol 39 mg/dL (40-59); Triglycerides 474 mg/dL (< 150)
[2024-08-29 20:00] VITALS: PULSE 109; PULSE 127; RESP 18; O2SAT 96
[2024-08-29] MEDS: LACTATED RINGER'S 500 ML IV ONE (20:51)
[2024-08-29] MEDS: LACTATED RINGER'S 1,000 ML IV SCH (21:28)
--- NOTE | 2024-08-29 21:36 | DVHPNRES ---
Progress Note Date Seen: Aug 29, 2024 Resident Creating Document: [email or web address] AlcantaraMIKE RESIDENT Medical Necessity Reason Pt with a Central, PICC or Fol: No Subjective Review of Systems At the time of examination patient reported mild abdominal discomfort upper abdomen which has improved since yesterday. Reported relief from nausea and vomiting. Denied chest pain, shortness of breath, headache, palpitations. Objective vital signs Vital Sign Date Time Temp Pulse Resp B/P (MAP) Pulse Ox O2 Delivery O2 Flow Rate FiO2 08/29/24 13:44 115 19 138/85 08/29/24 13:00 98.2 96 98.2 08/29/24 08:00 Room Air* 0 21 Total Intake and Output 08/28/24 08/28/24 08/29/24 15:00 23:00 07:00 Intake Total 25 ml 100 ml 0 ml Balance 25 ml 100 ml 0 ml medications Current Medications Medications Dose Ordered Sig/Edie Route Start Time Stop Time Status Last Admin Dose Admin Ondansetron HCl 4 mg Q4HP PRN IV 08/27/24 14:30 08/27/24 16:55 4 MG Ceftriaxone Sodium 50 ml @ 100 mls/hr DAILY@09 IV 08/28/24 09:00 08/29/24 08:51 100 MLS/HR Hydralazine HCl 10 mg Q6HP PRN IV 08/27/24 14:45 Pantoprazole Sodium 40 mg DAILY IV 08/27/24 15:30 08/29/24 08:51 40 MG Acetaminophen/ Hydrocodone Bitart 1 tab Q6HPRN PRN PO 08/28/24 04:30 08/29/24 02:08 1 TAB Gemfibrozil 600 mg Q12HR PO 08/28/24 22:00 08/29/24 08:52 600 MG Insulin Glargine 15 units DAILY SC 08/29/24 07:00 08/29/24 10:12 15 UNITS Diagnostic Test (Pha) 1 strip IQ4HR 08/28/24 16:00 08/29/24 20:20 1 STRIP Insulin Human Regular IQ4HR SC 08/28/24 16:00 08/29/24 20:48 6 UNITS Dextrose 50 ml UD PRN IV 08/28/24 12:45 Morphine Sulfate 2 mg Q6HPRN PRN IV 08/29/24 09:00 08/29/24 09:54 2 MG Lactated Ringer's 1,000 ml @ 80 mls/hr [id number] IV 08/29/24 19:00 Examination General: Patient is alert and oriented to time, place and person and does not appear to be in any acute distress Gen - no pallor, no icterus, no cyanosis, no clubbing, no LAD, no edema . Skin - Patients skin is warm and dry.. HEENT - normocephalic, atraumatic, dry mucous membranes. Neck - full ROM, no LAD Pulmonary - B/L vesicular breath sounds. no crackles , no wheezing cardiovascular - normal S1,S2 heard. no murmurs heard. No JVD GI - soft abdomen with mild tenderness to palpation in the umbilical and epigastric quadrants improved since yesterday. no hepatospleenomegaly. Bowel sounds normoactive Neurological - Bilateral upper extremity strength 5/5, bilateral lower extremity strength 5/5, no facial droop, normal speech, no tremor, no sensory deficiets. laboratory and microbiology Laboratory Tests 08/29/24 10:30 08/29/24 06:13 Test 08/29/24 06:13 Range/Units Serum Glucose 134 H 74-106 mg/dL Microbiology Date/Time Source Procedure Growth Status 08/27/24 11:17 Blood Blood Culture - Preliminary NO GROWTH AFTER 48 HOURS OF INCUBATION. Resulted 08/27/24 07:52 Voided Urine Urine Culture - Final Complete Problem List/Assessment/Plan Problem List/Assessment/Plan Assessment Diabetic ketoacidosis Anion gap metabolic acidosis with respiratory compensation Uncontrolled Type 2 diabetes mellitus with hyperglycemia - patient started on insulin drip - after anion gap closed and serum bicarbonate increased, insulin drip stopped and bridged with insulin Lantus sc - insulin Lantus 15 units SC q.d. and moderate insulin sliding scale - IV fluids - HbA1c 9.1% Acute Abdominal pain Acute intractable nausea and vomiting Acute pancreatitis likely due to hypertriglyceridemia - CT abdomen pelvis without contrast shows Enlarged pancreas with peripancreatic stranding as well as stranding and free fluid in the mesentery and upper abdomen.No loculated fluid collection or abscess identified. - patient NPO - IV fluids - gemfibrozil 600 mg q.12 hours - Protonix 40 mg IV daily - triglyceride level decreasing, monitor triglycerides q.12 hours - 08/29- clear liquid diet started Hypokalemia - replaced Goals of care discussed with the patient and her for over 27 minutes. Full code Plan discussed with Plan discussed with: Patient My Orders My Orders Orders - JAYDA DAVIS Procedure Category Date Status Time Morphine Sulfate PHA 08/29/24 In Process Injection 09:00 Clear Liq Diet DIET 08/29/24 Transmitted Lunch Lactated Ringer's PHA 08/29/24 In Process 19:00 Communication Order ORDERS 08/29/24 Transmitted 18:57 JAYDA DAVIS Aug 29, 2024 21:36
[2024-08-29 22:00] VITALS: BP 142/86; PULSE 109; RESP 18; TEMP 98.1; O2SAT 96
[2024-08-29] MEDS: MELATONIN 5 MG TAB PO SCH (22:34)
[2024-08-30] VITALS (8 sets, daily range): BP systolic 128–146; BP diastolic 66–94; PULSE 96–125; RESP 16–18; TEMP 97.3–98.2; O2SAT 93–97
[2024-08-30 06:41] LABS: Chloride 101 mmol/L (98-107); Sodium 137 mmol/L (136-145)
[2024-08-30 06:42] LABS: Anion Gap 10 (5-15); Carbon Dioxide 26 mmol/L (20-31)
[2024-08-30 06:58] LABS: Basophils # (auto) 0 10 ^3/uL (0-0.2); Basophils % (auto) 0.1 % (0.0-2.0); Eosinophils # (auto) 0 10 ^3/uL (0-0.8); Eosinophils % (auto) 0.2 % (0.0-7.0); Hemoglobin 12.6 g/dL (12.2-16.2); Lymphocytes # (auto) 1.7 10 ^3/uL (0.4-5.4); Lymphocytes % (auto) 13.7 % (10.0-50.0); Mean Corpuscular Hemoglobin 27.1 pg (28.0-32.0); Mean Corpuscular Hgb Conc. 33.3 g/dL (32.0-36.0); Mean Corpuscular Volume 81.5 fL (80.0-100.0); Monocytes # (auto) 1.2 10 ^3/uL (0-1.3); Monocytes % (auto) 9.5 % (0.0-12.0); Neutrophils # (auto) 9.3 10 ^3/uL (1.6-8.6); Neutrophils % (auto) 76.5 % (37.0-80.0); Nucleated Red Blood Cells % 0.1 %; Platelet Count (auto) 250 10^3/uL (140-450); Red Blood Cells 4.66 10^6/uL (4.0-5.20); Red Cell Distribution Width 12.8 % (11.8-14.3); White Blood Cell 12.1 10^3/uL (4.4-10.8)
[2024-08-30 07:03] LABS: BUN/Creatinine Ratio 11.6 (10.0-20.0); Blood Urea Nitrogen < 5 mg/dL (9-23); Calcium 10.5 mg/dL (8.7-10.4); Cholesterol 212 mg/dL (< 200); Glucose 157 mg/dL (74-106); HDL Cholesterol 33 mg/dL (40-59); LDL Cholesterol 115 mg/dL (< 100); Potassium 2.9 mmol/L (3.5-5.1); Triglycerides 350 mg/dL (< 150)
[2024-08-30] MEDS: SUCRALFATE 1 GM/10 ML ORAL SUSP PO ONE (10:02)
[2024-08-30] MEDS: MAGNESIUM SULFATE 1GM/100ML 100 ML IV ONE (10:03)
[2024-08-30] MEDS: POTASSIUM EFFERVESENT TAB 25 MEQ PO ONE (10:03)
[2024-08-30] MEDS: INSULIN LANTUS (GLARGINE) 1 /0.01ml (100units/ml) SC SCH (10:15)
[2024-08-30] MEDS: POTASSIUM CHLORIDE 40 MEQ, LIDOCAINE 1% (LOCAL ANESTH.) 4 ML in SODIUM CHL 0.9% 250 ML IV ONE (11:39)
[2024-08-30 16:41] LABS: Alanine Aminotransferase 18 U/L (7-40); Albumin 3.8 g/dL (3.2-4.8); Anion Gap 7 (5-15); Aspartate Aminotransferase 34 U/L (13-40); BUN/Creatinine Ratio 11.1 (10.0-20.0); Carbon Dioxide 28 mmol/L (20-31); Chloride 100 mmol/L (98-107); Potassium 3.6 mmol/L (3.5-5.1)
[2024-08-30 16:42] LABS: Bilirubin, Total 0.3 mg/dL (0.2-1.0); Total Protein 6.1 g/dL (5.7-8.2)
[2024-08-30 16:43] LABS: Alkaline Phosphatase 155 U/L (46-116); Blood Urea Nitrogen 5 mg/dL (9-23); Calcium 11.3 mg/dL (8.7-10.4); Glucose 192 mg/dL (74-106); Sodium 135 mmol/L (136-145)
[2024-08-30] MEDS ORDERED: GEMF-66 PO (17:03)
[2024-08-30] MEDS ORDERED: PANT40TA2 PO (17:03)
[2024-08-30] MEDS ORDERED: SUCR1SUS5 PO (17:03)
--- NOTE | 2024-08-30 17:04 | DVHDSRES ---
Discharge Summary Date of Admission Resident Creating Document: JAYDA DAVIS RESIDENT Aug 27, 2024 at 14:27 Date of Discharge: Aug 30, 2024 Admitting Diagnosis # DKA # diabetes type 2 with hyperglycemia # nausea and vomiting # rule out sepsis # acute UTI # hypertension # obesity Wounds: none Labs/Diagnostic Data: Laboratory Results Test 08/30/24 15:54 08/30/24 15:08 08/30/24 06:08 08/28/24 03:58 Sodium Level 135 mmol/L (136-145) Potassium Level 3.6 mmol/L (3.5-5.1) Chloride Level 100 mmol/L (98-107) Carbon Dioxide Level 28 mmol/L (20-31) Anion Gap 7 (5-15) Blood Urea Nitrogen 5 mg/dL (9-23) Creatinine 0.45 mg/dL (0.550-1.02) Glomerular Filtration Rate Calc 121 mL/min (>90) BUN/Creatinine Ratio 11.1 (10.0-20.0) Serum Glucose 192 mg/dL (74-106) Calcium Level 11.3 mg/dL (8.7-10.4) Total Bilirubin 0.3 mg/dL (0.2-1.0) Aspartate Amino Transferase (AST) 34 U/L (13-40) Alanine Aminotransferase (ALT) 18 U/L (7-40) Alkaline Phosphatase 155 U/L (46-116) B-Type Natriuretic Peptide 41.42 pg/mL (0-100) Total Protein 6.1 g/dL (5.7-8.2) Albumin 3.8 g/dL (3.2-4.8) POC Glucose 230 mg/dl (70-106) White Blood Count 12.1 10^3/uL (4.4-10.8) Red Blood Count 4.66 10^6/uL (4.0-5.20) Hemoglobin 12.6 g/dL (12.2-16.2) Hematocrit 38.0 % (36.0-46.0) Mean Corpuscular Volume 81.5 fL (80.0-100.0) Mean Corpuscular Hemoglobin 27.1 pg (28.0-32.0) Mean Corpuscular Hemoglobin Concent 33.3 g/dL (32.0-36.0) Red Cell Distribution Width 12.8 % (11.8-14.3) Platelet Count 250 10^3/uL (140-450) Mean Platelet Volume 9.1 fL (6.9-10.8) Neutrophils (%) (Auto) 76.5 % (37.0-80.0) Lymphocytes (%) (Auto) 13.7 % (10.0-50.0) Monocytes (%) (Auto) 9.5 % (0.0-12.0) Eosinophils (%) (Auto) 0.2 % (0.0-7.0) Basophils (%) (Auto) 0.1 % (0.0-2.0) Neutrophils # (Auto) 9.3 10 ^3/uL (1.6-8.6) Lymphocytes # (Auto) 1.7 10 ^3/uL (0.4-5.4) Monocytes # (Auto) 1.2 10 ^3/uL (0-1.3) Eosinophils # (Auto) 0 10 ^3/uL (0-0.8) Basophils # (Auto) 0 10 ^3/uL (0-0.2) Nucleated Red Blood Cells 0.1 % Triglycerides Level 350 mg/dL (< 150) Cholesterol Level 212 mg/dL (< 200) LDL Cholesterol 115 mg/dL (< 100) HDL Cholesterol 33 mg/dL (40-59) Lipase 52 U/L (12-53) Test 08/27/24 18:04 08/27/24 13:16 08/27/24 11:17 08/27/24 09:16 Beta-Hydroxybutyric Acid 2.877 mmol/L (< 0.4) Troponin I High Sensitivity 3 ng/L (</=34) Lactic Acid Level 1.6 mmol/L (0.4-2.0) Blood Gas Specimen Type Arterial Blood Gas Sample Site Left radial Blood Gas Patient Temperature 37.0 Arterial Blood Date Drawn [id number] Arterial Blood pH 7.395 (7.350-7.450) Arterial Blood Partial Pressure CO2 < 12.6 mmHg (32.0-45.0) Arterial Blood Partial Pressure O2 103.8 mmHg (83.0-108.0) Arterial Blood Oxygen Saturation 97.6 % (94.0-98.0) Arterial Blood Oxyhemoglobin 96.8 % (94.0-98.0) Arterial Blood Carboxyhemoglobin 0.5 % (0.5-1.5) Arterial Blood Methemoglobin 0.3 % (0.0-1.5) Dirk Test Yes Blood Gas Total Hemoglobin 14.00 g/dL (12.0-16.0) Blood Gas Modality Room air FiO2 % 21.0 Blood Gas Critical Value Read Back Yes Blood Gas Notified Whom Blood Gas Notified Time [id number] Blood Gas Notified By [employer]er iván Test 08/27/24 08:05 08/27/24 07:52 Hemoglobin A1c 9.1 % A1C (<5.7) Serum Osmolality 301 mOsm/kg (278-298) Phosphorus Level 2.9 mg/dL (2.4-5.1) Beta HCG, Quantitative 0.1 mIU/mL (1.5-4.2) Urine Color Light-yellow (Yellow) Urine Clarity Turbid (Clear) Urine pH 5.0 (5.0-9.0) Urine Specific [place] 1.026 (1.001-1.035) Urine Protein 1+ (Negative) Urine Ketones 4+ (Negative) Urine Blood 2+ /uL (Negative) Urine Nitrite Negative (Negative) Urine Bilirubin Negative (Negative) Urine Urobilinogen 2 mg/dL (Negative) Urine Leukocyte Esterase 3+ /uL (Negative) Urine RBC 13 /hpf (0 - 4) Urine WBC 57 /hpf (0 - 5) Urine Squamous Epithelial Cells Few /hpf (<5) Urine Bacteria None seen /hpf (None Seen) Urine Hyaline Casts Few /lpf (0 - 2) Urine Glucose 4+ mg/dL (Normal) Other Laboratory Tests 08/30/24 15:54 08/30/24 06:08 Brief Hx & Hospital Course: Patient 44-year-old female with a past medical history of type 2 diabetes mellitus, hypertension, GERD came to the ED with a chief complaint of nausea and vomiting with the past 3 days. Patient reports that she was apparently well 3 days ago when she started to have nausea and vomiting and was not able to keep anything down. Also reported pain in the epigastrium and the umbilical quadrants, nonradiating pain which was intermittent on and off and got worsened with the food intake. Patient denied shortness of breath, chest pain, diarrhea. At admission patient had elevated WBC with left shift, BMP showing carbon dioxide less than 10, anion gap 26 and elevated beta hydroxybutyric acid. Patient had elevated triglycerides at 1600, lipase 78. Medical history: Type 2 diabetes mellitus, hypertension, hypothyroidism Surgical history: None reported Social history: Patient was with family and denies smoking, alcohol, drug use Medications: Lisinopril 10 mg, fenofibrate 145 mg, levothyroxine 75 mcg Hospital course Patient was admitted to the hospital and was found to have elevated anion gap with low serum bicarbonate, elevated beta hydroxybutyrate levels and elevated blood sugar levels following which the patient was treated for diabetic ketoacidosis with insulin drip and IV fluids, potassium repletion. With the treatment patient's anion gap closed and serum bicarbonate increased and insulin drip was stopped. Patient reported of abdominal pain and was noted to tolerate oral diet except for the water. CT abdomen pelvis was ordered which showed enlarged pancreas with peripancreatic fat stranding which were suggestive of acute pancreatitis. Patient's serum triglyceride levels were more than 1500. Patient was kept NPO and was started on IV fluids. Gemfibrozil 600 mg p.o. q.12 hours was started. Patient's triglyceride levels were monitored q.12 hours which showed regular declined. Patient was started on clear liquid diet after 24 hours which she tolerated well and eventually the diet was progressed to full liquid diet which she tolerated well. Patient denied feeling abdominal pain, no episode of nausea vomiting over 48 hours. Patient was discharged in stable condition to home Discharge plan Discharged home Follow up in the discharge clinic in 1 week Follow up with the PCP Discharge medications: Continued home medications and prescribed gemfibrozil 600 mg p.o. q.12 hours, Protonix 40 mg q.d., sucralfate 1 g b.i.d. p.r.n., nitrofurantoin 100 mg b.i.d. for 5 days Consults/Reason for consult none Operations or Procedures CT abdomen pelvis without contrast Findings: Lung Bases: Trace bilateral pleural effusions with associated basilar atelectasis and scarring. Liver: The liver is normal in size. No focal lesions. Gallbladder and biliary Tree: Unremarkable Spleen: Unremarkable Pancreas: Pancreas appears enlarged with peripancreatic stranding consistent with acute pancreatitis. Adrenal Glands: Unremarkable Kidneys: Kidneys are grossly normal without calculi or hydronephrosis. Bladder: Grossly unremarkable for degree of distention. Bowel: The stomach is grossly normal in appearance. Small bowel and colon are normal in caliber and distribution. The appendix is not visualized; however, no secondary findings of acute appendicitis identified. Ascites: Small amount of ascites in the upper abdomen. Lymphadenopathy: No mesenteric, retroperitoneal or periportal lymphadenopathy. Abdominal wall and Mesentery: Stranding in the mesentery. Vasculature: The visualized abdominal aorta is normal in size and caliber. Evaluation of abdominal and pelvic vessels is limited due to lack of intravenous contrast. Pelvic Organs: Unremarkable Musculoskeletal: No aggressive focal bony lesions, acute fractures or dislocation. IMPRESSION: Enlarged pancreas with peripancreatic stranding as well as stranding and free fluid in the mesentery and upper abdomen. Findings are consistent with given history of acute pancreatitis. No loculated fluid collection or abscess identified. Consider further evaluation with CT or MRI of the abdomen with contrast. Gallbladder ultrasound FINDINGS: Liver and spleen are normal in size without focal mass. No gallstones or gallbladder wall thickening. No biliary dilatation. Kidneys are normal in size without mass stone or hydronephrosis. Limited visualization of the pancreas due to overlying bowel gas. No free fluid. No abnormalities of the aorta or inferior vena cava. IMPRESSION: Normal abdominal ultrasound. No evidence of cholelithiasis or cholecystitis Condition at Discharge: Good Final Diagnosis/Problems List Diabetic ketoacidosis Anion gap metabolic acidosis with respiratory compensation Uncontrolled Type 2 diabetes mellitus with hyperglycemia Acute Abdominal pain Acute intractable nausea and vomiting Acute pancreatitis likely due to hypertriglyceridemia Hypokalemia Hypomagnesemia Discharge Disposition: Home Discharge Instruct/Medications Diet: Consistent carbohydrate, See Comment Diet comment: continue with full liquid diet for 3-4 days and then progress to regular consistent carbohydrate diet as tolerated Activity: No Restrictions, As Tolerated Follow Up/Referral: Follow up in the discharge clinic in one week Follow up with the PCP Medications: as per EMR Discharge Statement: "Patient was advised to return to the ER or call 911 if any headaches, dizziness, shortness of breath, chest pain, abdominal pain, bleeding, fevers, or worsening of medical condition. Patient was counseled about treatment plan, medications, possible side effects, patientverbalized understanding. All questions were answered to the best of my ability. This discharge took greater then 30 minutes in planning, reviewing documentation, counseling the patient, and discussing with other team members." ASSESSMENT ASSESSMENT Assessment Diabetic ketoacidosis Anion gap metabolic acidosis with respiratory compensation Uncontrolled Type 2 diabetes mellitus with hyperglycemia Acute Abdominal pain Acute intractable nausea and vomiting Acute pancreatitis likely due to hypertriglyceridemia Hypokalemia Hypomagnesemia Date of Service: Aug 30, 2024 Billing Provider: THEO LEE MD Common Visit Codes: [id number] DISCH DAY >30min JAYDA DAVIS RESIDENT Aug 30, 2024 17:04 THEO LEE MD Aug 30, 2024 23:16
[2024-08-30] MEDS ORDERED: NITR-52 PO (17:10)
[2024-08-30] MEDS ORDERED: SUCRALFATE 1 GM/10 ML ORAL SUSP PO SCH (22:00)
== END 2024-08-30 18:00 | disposition home or self-care (01) | DRG 282 ==
LOC: ER 07:42 → OVERFLOW 14:27 → TELE 08-28 00:43 → TELE-CENTR 08-28 23:25
PROVIDERS: ADMIT Internal Medicine; ATTEND Internal Medicine
DX: K85.90 Acute pancreatitis without necrosis or infection, unspecified (principal); N17.0 Acute kidney failure with tubular necrosis; R65.11 Systemic inflammatory response syndrome (SIRS) of non-infectious origin with acute organ dysfunction; E11.10 Type 2 diabetes mellitus with ketoacidosis without coma; E87.4 Mixed disorder of acid-base balance; E66.9 Obesity, unspecified; N39.0 Urinary tract infection, site not specified; E87.6 Hypokalemia; I10 Essential (primary) hypertension; K21.9 Gastro-esophageal reflux disease without esophagitis; E83.42 Hypomagnesemia; Z79.4 Long term (current) use of insulin; Z79.899 Other long term (current) drug therapy; Z68.22 Body mass index [BMI] 22.0-22.9, adult
CPT/HCPCS: 36415; 36600; 71045; 74176; 76705; 80048; 80053; 80061; 81001; 82010; 82805; 82962; 83036; 83605; 83690; 83735; 83880; 83930; 84100; 84484; 84702; 85025; 87040; 87086; 93005; 99291; 99292; G0378; J1815; J2003; J2405; J2470; J2543; J3480